=== PATIENT | male | born 2005 | race Caucasian/White ===

== ENCOUNTER 2025-06-03 02:38 | Emergency (ER) | payer BC ==
[2025-06-03] MEDS ORDERED: Dexamethasone 1 MG/ML Oral Drops 30 ML Bottle PO ONE (03:41)
[2025-06-03] MEDS: Ketorolac 30 MG/ML SDV IM ONE (04:13)
== END 2025-06-03 06:14 | disposition home or self-care (01) ==
LOC: MW.ED 02:38
DX: J06.9 Acute upper respiratory infection, unspecified (principal)
CPT/HCPCS: 71045; 87426; 87651; 96372; 99284; A9270; J1885; J8540; 99283